=== PATIENT | female | born 1970 | race Two or more races ===

== ENCOUNTER 2018-12-21 10:37 | Emergency (ER) | payer OTHER ==
[~2018-12-21] VITALS: Ht 167.6 cm; Wt 112.5 kg
[~2018-12-21 10:37] MED LIST: ALBU2.5V38 IH; ASPI81TA31 PO; ATOR10TA PO; BUME2TAB3 PO; CARV12.52 PO; HYDR-4354 PO; HYDR50TA68 PO; Isosorbide Dinitrate PO; METF-440 PO; METO5TAB7 PO; POTA20TA10 PO; SORB30SO2 PO
[2018-12-21] MEDS ORDERED: diphenhydrAMINE 50 MG/1 ML VIAL IV ONE (10:45)
[2018-12-21] MEDS ORDERED: MORPHINE SULFATE 4 MG/1 ML DISP.SYRIN IV ONE ×2 (10:45→11:30)
[2018-12-21] MEDS ORDERED: diphenhydrAMINE 50 MG/1 ML VIAL ONE (10:50)
[2018-12-21] MEDS ORDERED: MORPHINE SULFATE 4 MG/1 ML DISP.SYRIN ONE ×3 (10:51→11:30)
[2018-12-21] MEDS ORDERED: ONDANSETRON 4 MG/2 ML VIAL ONE (10:55)
[2018-12-21] MEDS ORDERED: ONDANSETRON IV *ER 4 MG/2 ML VIAL IV ONE (11:00)
[2018-12-21] MEDS ORDERED: MORPHINE SULFATE 2 MG/1 ML DISP.SYRIN IV ONE (11:00)
--- NOTE | 2018-12-21 11:01 | NUR ---
PT IS IN ROOM #1B. DR MURPHY EVALUATED THE PT.
--- NOTE | 2018-12-21 11:44 | NUR ---
PT WAS D/C'd TO HOME AFTER ER MD RE-EVALUATION. D/C INSTRUCTIONS GIVEN TO THE PT.
[2018-12-21 11:45] VITALS: BP 153/95
== END 2018-12-21 11:46 | disposition home or self-care (01) ==
LOC: ER 10:37
DX: R60.9 Edema, unspecified (principal); I11.0 Hypertensive heart disease with heart failure; I50.9 Heart failure, unspecified; J45.909 Unspecified asthma, uncomplicated; E11.9 Type 2 diabetes mellitus without complications; F17.200 Nicotine dependence, unspecified, uncomplicated; Z88.5 Allergy status to narcotic agent; Z79.82 Long term (current) use of aspirin; Z79.891 Long term (current) use of opiate analgesic; Z79.899 Other long term (current) drug therapy
CPT/HCPCS: 96374; 96375; 96376; 99283; J1200; J2270 ×3; J2405; A4663

== ENCOUNTER 2019-04-18 17:29 | Emergency (ER) | payer OTHER ==
[~2019-04-18] VITALS: Ht 167.6 cm; Wt 108.9 kg
[2019-04-18] MEDS ORDERED: FUROSEMIDE 20 MG TABLET ONE (18:09)
[2019-04-18] MEDS ORDERED: HYDROCHLOROTHIAZIDE 25 MG TABLET ONE (18:10)
[2019-04-18] MEDS ORDERED: HYDROCHLOROTHIAZIDE 25 MG TABLET PO ONE (18:15)
[2019-04-18] MEDS ORDERED: FUROSEMIDE 20 MG TABLET PO ONE (18:15)
[2019-04-18 18:20] LABS: BASOPHILS % (AUTO) 0.6 % (0.0-2.0); EOSINOPHILS # (AUTO) 0.2 K/uL (0.0-0.7); EOSINOPHILS % (AUTO) 3.2 % (0.0-7.0); HEMATOCRIT 40.1 % (31.2-41.9); HEMOGLOBIN 12.8 g/dL (10.9-14.3); LYMPHOCYTES % (AUTO) 16.8 % (20.5-51.5); MEAN CORPUSCULAR HEMOGLOBIN 26.2 uug (24.7-32.8); MEAN CORPUSCULAR HGB CONC 32 g/dL (32.3-35.6); MEAN CORPUSCULAR VOLUME 82.4 fL (75.5-95.3); MONOCYTES # (AUTO) 0.4 K/uL (2.0-10.0); NEUTROPHILS # (AUTO) 4.2 K/uL (1.8-8.9); NEUTROPHILS % (AUTO) 72.4 % (38.5-71.5); PLATELET COUNT (AUTO) 182 K/uL (179-408); RED BLOOD CELL COUNT(AUTO) 4.87 MIL/uL (3.63-4.92); WHITE BLOOD COUNT (AUTO) 5.7 K/uL (3.8-11.8)
[2019-04-18 18:28] LABS: CREATININE 2.2 mg/dL (0.6-1.3); POTASSIUM 4.5 mmol/L (3.5-5.1)
[2019-04-18 18:34] LABS: BILIRUBIN,DIRECT 0.2 mg/dL (0.0-0.2); BILIRUBIN,TOTAL 0.4 mg/dL (0.2-1.0); TOTAL PROTEIN, SERUM 7.7 g/dL (6.4-8.2)
--- NOTE | 2019-04-18 18:49 | NUR ---
PT WAS EVALUATED BY DR CHONG. PT WAS D/C'd TO HOME. D/C INSTRUCTIONS GIVEN TO THE PT.
[2019-04-18 18:50] VITALS: BP 141/83
== END 2019-04-18 18:52 | disposition home or self-care (01) ==
LOC: ER 17:29
DX: R18.8 Other ascites (principal); R06.02 Shortness of breath; I11.0 Hypertensive heart disease with heart failure; I50.9 Heart failure, unspecified; J45.909 Unspecified asthma, uncomplicated; E11.9 Type 2 diabetes mellitus without complications; F17.200 Nicotine dependence, unspecified, uncomplicated; Z88.5 Allergy status to narcotic agent; Z79.82 Long term (current) use of aspirin; Z79.899 Other long term (current) drug therapy
CPT/HCPCS: 36415; 85025; 85730; A4663

== ENCOUNTER 2019-04-19 05:47 | Emergency (ER) | payer OTHER ==
[~2019-04-19] VITALS: Ht 167.6 cm; Wt 95.3 kg
--- NOTE | 2019-04-19 06:20 | NUR ---
Patient was here at the ER yesterday 04/18/19 and was discharge to home at 6pm 04/18/19 for pain. Return back to Er today with the same complaint. Patient reported severe back, neck and nurys. leg pain. pain level 10/10. Denies abdominal pain. Denies any N/V. Patient AAOx4. Able to speak full sentences. In no acute distress. No cardiovascular concern. No /GI concern. Bed on lock position. Fall precaution per protocol.
[2019-04-19] MEDS ORDERED: IV NORMAL SALINE 500 ML BAG IV ONE (07:00)
[2019-04-19] MEDS ORDERED: MORPHINE SULFATE 2 MG/1 ML DISP.SYRIN IV ONE (07:00)
[2019-04-19] MEDS ORDERED: ONDANSETRON 4 MG/2 ML VIAL IV ONE ×2 (07:00→07:30)
--- NOTE | 2019-04-19 07:02 | NUR ---
Report given to day shift nurse Louie.
[2019-04-19] MEDS ORDERED: MORPHINE SULFATE 4 MG/1 ML DISP.SYRIN ONE ×3 (07:15→10:35)
[2019-04-19] MEDS ORDERED: diphenhydrAMINE 50 MG/1 ML VIAL IV ONE (07:15)
[2019-04-19] MEDS ORDERED: ONDANSETRON 4 MG/2 ML VIAL ONE ×3 (07:15→10:35)
[2019-04-19] MEDS ORDERED: diphenhydrAMINE 50 MG/1 ML VIAL ONE (07:20)
[2019-04-19] MEDS ORDERED: MORPHINE SULFATE 4 MG/1 ML DISP.SYRIN IV ONE ×2 (07:30→10:30)
--- NOTE | 2019-04-19 10:04 | NUR ---
The tech talked to Dr. Wise (IR) at 8:45 am. The radiologist will called back [facility] to notify his availability. The tech notified the ER about it.
--- NOTE | 2019-04-19 10:28 | NUR ---
Dr. Wise called and let the tech know that he was caught with procedures in the [facility]. He could come in in the afternoon or evening. The tech talked to Dr. Suazo who also discussed with the patient. The patient decided to come in to ER on 04/20/2019. The tech called and notified Dr. Wise about the postponement.
[2019-04-19] MEDS ORDERED: ONDANSETRON IV *ER 4 MG/2 ML VIAL IV ONE (10:30)
--- NOTE | 2019-04-19 10:55 | NUR ---
PT WAS D/C'D TO HOME AFTER DR MURPHY RE-EVALUATION. D/C INSTRUCTIONS GIVEN TO THE PT .
[2019-04-19 10:56] VITALS: BP 142/77
== END 2019-04-19 10:57 | disposition home or self-care (01) ==
LOC: ER 05:49
DX: R18.8 Other ascites (principal); I11.0 Hypertensive heart disease with heart failure; I50.9 Heart failure, unspecified; J45.909 Unspecified asthma, uncomplicated; E11.9 Type 2 diabetes mellitus without complications; Z88.8 Allergy status to other drugs, medicaments and biological substances; Z79.899 Other long term (current) drug therapy; Z79.82 Long term (current) use of aspirin
CPT/HCPCS: 82962; 96374; 96375; 96376; 99284; J1200; J2270 ×3; J2405 ×3; A4663; J7030

== ENCOUNTER 2019-04-29 10:14 | Emergency (ER) | payer OTHER ==
[~2019-04-29] VITALS: Ht 167.6 cm; Wt 99.8 kg
[~2019-04-29 10:14] MED LIST changes: -METF-440 PO
[2019-04-29] MEDS ORDERED: FURO-151 PO (10:26)
[2019-04-29] MEDS ORDERED: NEOMY/BACITRA/POLYMYXIN B OINT UD PACKET TP ONE ×2 (10:58→11:00)
[2019-04-29] MEDS ORDERED: METOCLOPRAMIDE HCL 10 MG/2 ML VIAL ONE (10:58)
[2019-04-29] MEDS ORDERED: METOCLOPRAMIDE HCL 10 MG/2 ML VIAL IM ONE ×2 (11:00→11:30)
--- NOTE | 2019-04-29 11:01 | NUR ---
PT REFUSING REGLAN AT THIS TIME. PT REQUESTING PAIN MED. NOTIFIED
--- NOTE | 2019-04-29 11:19 | NUR ---
REQUESTING APPLE JUICE. PT TOLERATED APPLE JUICE, NO NAUSEA.
[2019-04-29] MEDS ORDERED: HYDROMORPHONE 1 MG/1 ML DISP.SYRIN IM ONE (11:30)
[2019-04-29] MEDS ORDERED: HYDROMORPHONE 2 MG/1 ML DISP.SYRIN ONE (11:31)
--- NOTE | 2019-04-29 11:42 | NUR ---
Patient discharged to home in stable conditon. Written and verbal after care instructions given. Patient verbalizes understanding of instructions.PT WALKS IN STEADY GAIT.PT NOT DRIVING. Addendum: 04/29/19 at 1145 by ARNAV CORRECTION, PT RECIEVED THE VERBAL D/C. PT DID NOT WANT TO WAITFOR WRITTEN D/C INSTRUCTION.
[2019-04-29 11:43] VITALS: BP 161/89
== END 2019-04-29 11:46 | disposition home or self-care (01) ==
LOC: ER 10:14
DX: S81.811A Laceration without foreign body, right lower leg, initial encounter (principal); I87.2 Venous insufficiency (chronic) (peripheral); I11.0 Hypertensive heart disease with heart failure; I50.9 Heart failure, unspecified; J45.909 Unspecified asthma, uncomplicated; E11.9 Type 2 diabetes mellitus without complications; F17.200 Nicotine dependence, unspecified, uncomplicated; Z76.5 Malingerer [conscious simulation]; Z88.8 Allergy status to other drugs, medicaments and biological substances; Z79.82 Long term (current) use of aspirin; Z79.899 Other long term (current) drug therapy; W22.8XXA Striking against or struck by other objects, initial encounter; Y93.89 Activity, other specified; Y92.89 Other specified places as the place of occurrence of the external cause; Y99.8 Other external cause status
CPT/HCPCS: 96372 ×2; 99283; J1170; J2765; A4663

== ENCOUNTER 2019-12-02 22:11 | Emergency (ER) | payer OTHER ==
[~2019-12-02] VITALS: Ht 167.6 cm; Wt 99.8 kg
[~2019-12-02 22:11] MED LIST changes: -ALBU2.5V38 IH; -ATOR10TA PO; -BUME2TAB3 PO; +FURO-151 PO; -Isosorbide Dinitrate PO; -METO5TAB7 PO; -POTA20TA10 PO; -SORB30SO2 PO
[2019-12-02] MEDS ORDERED: FUROSEMIDE 40 MG/4 ML VIAL IV ONE (22:30)
[2019-12-02] MEDS ORDERED: FUROSEMIDE 40 MG/4 ML VIAL ONE (22:38)
[2019-12-02 22:39] LABS: BASOPHILS % (AUTO) 0.6 % (0.0-2.0); EOSINOPHILS # (AUTO) 0.2 K/uL (0.0-0.7); EOSINOPHILS % (AUTO) 4.2 % (0.0-7.0); HEMOGLOBIN 13.7 g/dL (10.9-14.3); LYMPHOCYTES # (AUTO) 0.9 K/uL (20.0-40.0); LYMPHOCYTES % (AUTO) 15.6 % (20.5-51.5); MEAN CORPUSCULAR HEMOGLOBIN 25.5 uug (24.7-32.8); MEAN CORPUSCULAR HGB CONC 32 g/dL (32.3-35.6); MEAN CORPUSCULAR VOLUME 80.1 fL (75.5-95.3); MONOCYTES # (AUTO) 0.4 K/uL (2.0-10.0); MONOCYTES % (AUTO) 6.4 % (0.0-11.0); NEUTROPHILS # (AUTO) 4.2 K/uL (1.8-8.9); NEUTROPHILS % (AUTO) 73.2 % (38.5-71.5); PLATELET COUNT (AUTO) 181 K/uL (179-408); RED BLOOD CELL COUNT(AUTO) 5.36 MIL/uL (3.63-4.92); WHITE BLOOD COUNT (AUTO) 5.8 K/uL (3.8-11.8)
[2019-12-02 22:48] LABS: CREATININE 1.9 mg/dL (0.6-1.3); POTASSIUM 4.9 mmol/L (3.5-5.1)
[2019-12-02 22:54] LABS: BILIRUBIN,DIRECT 0.2 mg/dL (0.0-0.2); BILIRUBIN,TOTAL 0.5 mg/dL (0.2-1.0); TOTAL PROTEIN, SERUM 7.5 g/dL (6.4-8.2)
[2019-12-02] MEDS ORDERED: ONDANSETRON 4 MG/2 ML VIAL ONE (23:14)
[2019-12-02] MEDS ORDERED: CLOPIDOGREL 75 MG TABLET ONE (23:14)
[2019-12-02] MEDS ORDERED: MORPHINE SULFATE 4 MG/1 ML DISP.SYRIN ONE (23:14)
[2019-12-02] MEDS ORDERED: CLOPIDOGREL 75 MG TABLET PO ONE (23:15)
[2019-12-02] MEDS ORDERED: MORPHINE SULFATE 2 MG/1 ML DISP.SYRIN ONE (23:15)
[2019-12-02] MEDS ORDERED: ONDANSETRON 4 MG/2 ML VIAL IV ONE (23:15)
[2019-12-02] MEDS ORDERED: MORPHINE SULFATE 4 MG/1 ML DISP.SYRIN IV ONE (23:15)
[2019-12-02] MEDS ORDERED: HYDROMORPHONE 1 MG/1 ML DISP.SYRIN ONE (23:36)
--- NOTE | 2019-12-02 23:36 | NUR ---
Pt refused to have ABG done, RN FC is aware and notified.
[2019-12-02] MEDS ORDERED: HYDROMORPHONE 1 MG/1 ML DISP.SYRIN IV ONE (23:45)
[2019-12-03] MEDS: VANCOMYCIN IV 1,000 MG in IV DEXTROSE 5% 250 ML IV ONE ×2 (00:01→00:37)
[2019-12-03] MEDS ORDERED: VANCOMYCIN IV 200 ML ONE (00:02)
--- NOTE | 2019-12-03 00:37 | NUR ---
PT REFUSED IV ANTIBIOTICS PT REFUSED ABG DRAW ERMD AWARE PT STATES SHE WANTS TO LEAVE BECAUSE SHE HAS A JEHOVAH'S WITNESS TOMORROW MORNING
--- NOTE | 2019-12-03 00:46 | NUR ---
Patient does not wish to proceed with medical care recommended by Dr. HART. Patient given information related to possible complications, up to and including , which could occur as a result of leaving the hospital at this time. Patient verbalizes understanding of risks involved due to leaving against medical advice. Patient has signed AMA form.
[2019-12-03 03:23] VITALS: BP 154/94
== END 2019-12-03 00:50 | disposition left against medical advice (07) ==
LOC: ER 22:11
DX: I21.4 Non-ST elevation (NSTEMI) myocardial infarction (principal); I11.0 Hypertensive heart disease with heart failure; I50.9 Heart failure, unspecified; L03.115 Cellulitis of right lower limb; L03.116 Cellulitis of left lower limb; R60.9 Edema, unspecified; N28.9 Disorder of kidney and ureter, unspecified; J45.909 Unspecified asthma, uncomplicated; E11.9 Type 2 diabetes mellitus without complications; F17.210 Nicotine dependence, cigarettes, uncomplicated; Z76.5 Malingerer [conscious simulation]; Z88.8 Allergy status to other drugs, medicaments and biological substances; Z79.82 Long term (current) use of aspirin; Z79.899 Other long term (current) drug therapy
CPT/HCPCS: 36415; 71045; 80048; 80076; 83690; 84484; 85025; 85730; 93005; 93970; 96374; 96375; 99284; J1170; J1940; J2270 ×2; J2405; J3370; 70030-TC; A4663

== ENCOUNTER 2019-12-03 20:52 | Inpatient (IN) | payer OTHER ==
[~2019-12-03] VITALS: Ht 167.6 cm; Wt 116.2 kg
--- NOTE | 2019-12-03 21:07 | NUR ---
Dr. Spears at bedside for MSE.
--- NOTE | 2019-12-03 21:25 | NUR ---
Xray at bedside.
[2019-12-03] MEDS ORDERED: FUROSEMIDE 40 MG/4 ML VIAL ONE (21:30)
[2019-12-03] MEDS ORDERED: FUROSEMIDE 40 MG/4 ML VIAL IV ONE (21:30)
[2019-12-03 21:34] LABS: CREATININE 2.1 mg/dL (0.6-1.3)
--- NOTE | 2019-12-03 21:34 | NUR ---
Pt states unable to provide urine at this time.
[2019-12-03 21:35] LABS: BASOPHILS % (AUTO) 0.5 % (0.0-2.0); EOSINOPHILS # (AUTO) 0.2 K/uL (0.0-0.7); HEMATOCRIT 41.7 % (31.2-41.9); HEMOGLOBIN 13.1 g/dL (10.9-14.3); LYMPHOCYTES # (AUTO) 0.8 K/uL (20.0-40.0); LYMPHOCYTES % (AUTO) 16.5 % (20.5-51.5); MEAN CORPUSCULAR HEMOGLOBIN 25.8 uug (24.7-32.8); MEAN CORPUSCULAR HGB CONC 32 g/dL (32.3-35.6); MEAN CORPUSCULAR VOLUME 81.9 fL (75.5-95.3); MONOCYTES # (AUTO) 0.4 K/uL (2.0-10.0); MONOCYTES % (AUTO) 7.5 % (0.0-11.0); NEUTROPHILS # (AUTO) 3.5 K/uL (1.8-8.9); NEUTROPHILS % (AUTO) 71.5 % (38.5-71.5); PLATELET COUNT (AUTO) 165 K/uL (179-408); WHITE BLOOD COUNT (AUTO) 4.8 K/uL (3.8-11.8)
[2019-12-03] MEDS ORDERED: HYDROMORPHONE 1 MG/1 ML DISP.SYRIN ONE (21:36)
[2019-12-03] MEDS ORDERED: ONDANSETRON 4 MG/2 ML VIAL ONE (21:42)
[2019-12-03] MEDS ORDERED: HYDROMORPHONE 1 MG/1 ML DISP.SYRIN IV ONE (21:45)
[2019-12-03] MEDS ORDERED: ONDANSETRON 4 MG/2 ML VIAL IV ONE (21:45)
[2019-12-03 21:47] LABS: BILIRUBIN,DIRECT 0.2 mg/dL (0.0-0.2); BILIRUBIN,TOTAL 0.5 mg/dL (0.1-1.0)
[2019-12-03 21:48] LABS: TOTAL PROTEIN, SERUM 7.2 g/dL (6.4-8.2)
[2019-12-03 21:49] LABS: THYROID STIMULATING HORMONE 0.539 mIU/mL (0.358-3.740)
[2019-12-03] MEDS ORDERED: CLOPIDOGREL 75 MG TABLET ONE (21:57)
[2019-12-03] MEDS ORDERED: CLOPIDOGREL 75 MG TABLET PO ONE (22:00)
--- NOTE | 2019-12-03 22:09 | NUR ---
Called [facility] to page Jeanette Celestin NP.
--- NOTE | 2019-12-03 22:18 | NUR ---
Dr. Spears on panel call with Jeanette Celestin FRONT DESK SUPERVISOR. Patient accepted for admission to [facility], diagnosis: CHF exacerbation, sob.
[2019-12-03] MEDS ORDERED: NITROGLYCERIN 0.4 MG/TAB BOTTLE SL PRN (22:30)
[2019-12-03] MEDS ORDERED: MORPHINE SULFATE 4 MG/1 ML DISP.SYRIN IV ONE (22:30)
[2019-12-03] MEDS ORDERED: MORPHINE SULFATE 2 MG/1 ML DISP.SYRIN ONE (22:32)
[2019-12-03] MEDS ORDERED: MORPHINE SULFATE 4 MG/1 ML DISP.SYRIN ONE (22:32)
--- NOTE | 2019-12-03 22:43 | NUR ---
Report given to [facility].
[2019-12-03] MEDS ORDERED: hydrALAZINE HCL 20 MG/1 ML VIAL IV PRN (22:45)
[2019-12-03 23:07] VITALS: BP 170/104
[2019-12-03] MEDS: HYDROCODONE/APAP 10-325 MG TABLET PO PRN (23:36)
--- NOTE | 2019-12-03 23:45 | NUR ---
Patient arrived on floor at 2300, accompanied by ER nurse via gurney. Patient able to walk from outside of room to bed. Able to go to bathroom as well, able to void with no difficulty. AAO x 4. No visible signs of distress with O2 of 4LPM via NC. All belongings noted and accounted for. Initial physical assessment done. No noted skin breakdown aside from brownish discoloration on lower extremities, accompanied by swelling, and what appears to be lesions (with hx: of Psoriasis). Ascites noted, abdomen very distended and hard. Complaints of 4/10 pain in the back, abdomen and lower extremities (2305). Medication given in ER slowly wearing off per patient. VS taken: BP elevated: 180/100, Telemetry monitoring started. Hr in the 90s, sinus rhythm but with occasional PVCs. New admission orders noted and carried out. Hydralazine 10 mg IVP given as ordered for PRN SBP > 160. Patient also complained of worsening pain at around 2340. [place] 10/325mg given. Will re-assess vital signs in an hour. Unable to start patient on DVT pumps due to swelling on BLE. But MD with orders for chemical DVT prophylaxis. Monitoring continued.
--- NOTE | 2019-12-04 00:30 | NUR ---
BP rechecked: 140/81. Patient sleeping comfortably at this time, no signs of distress.
[2019-12-04 00:32] VITALS: BP 140/81
--- NOTE | 2019-12-04 01:50 | NUR ---
Pt woke up and complaining of 10/10 pain. [place] 10/325 mg starting to wear off per patient. report given to Velia Vuong NP. Meds reviewed with . Received new order for Dilaudid 1mg x 1, and to add Aldactone 25mg PO daily to medications. Pt notified, and agreed with plan of care.
[2019-12-04] MEDS ORDERED: HYDROMORPHONE 1 MG/1 ML DISP.SYRIN IV PRN (02:00)
[2019-12-04 05:14] VITALS: BP 121/58
[2019-12-04] MEDS ORDERED: hydrALAZINE HCL 50 MG TABLET PO SCH (06:00)
[2019-12-04] MEDS: HYDROCODONE/APAP 10-325 MG TABLET PO PRN (06:04)
[2019-12-04 06:41] LABS: BASOPHILS % (AUTO) 0.4 % (0.0-2.0); EOSINOPHILS # (AUTO) 0.2 K/uL (0.0-0.7); EOSINOPHILS % (AUTO) 4.3 % (0.0-7.0); HEMATOCRIT 38.6 % (31.2-41.9); HEMOGLOBIN 12.2 g/dL (10.9-14.3); LYMPHOCYTES % (AUTO) 19.9 % (20.5-51.5); MEAN CORPUSCULAR HEMOGLOBIN 25.5 uug (24.7-32.8); MEAN CORPUSCULAR HGB CONC 32 g/dL (32.3-35.6); MEAN CORPUSCULAR VOLUME 80.9 fL (75.5-95.3); MONOCYTES # (AUTO) 0.5 K/uL (2.0-10.0); MONOCYTES % (AUTO) 9.2 % (0.0-11.0); NEUTROPHILS # (AUTO) 3.3 K/uL (1.8-8.9); NEUTROPHILS % (AUTO) 66.2 % (38.5-71.5); PLATELET COUNT (AUTO) 178 K/uL (179-408); RED BLOOD CELL COUNT(AUTO) 4.77 MIL/uL (3.63-4.92)
[2019-12-04 06:48] LABS: CREATININE 2.1 mg/dL (0.6-1.3); POTASSIUM 5.2 mmol/L (3.5-5.1)
--- NOTE | 2019-12-04 06:58 | NUR ---
Patient slept well through the night after Dilaudid 1mg x 1, and another [place] 10 at 0600. BP also stabilized at 121/58. Due AM medications given, tolerated well. Pt verbalized desire to sleep longer and if possible not be bothered. Respected wishes. Reminded her to call for help when trying to get up, due to pain meds given. Verbalized understanding. Bed alarm turned on, bed kept low. Fall and safety precautions maintained.
[2019-12-04 07:01] LABS: THYROID STIMULATING HORMONE 0.78 mIU/mL (0.358-3.740)
[2019-12-04 07:03] LABS: BILIRUBIN,TOTAL 0.4 mg/dL (0.2-1.0); MAGNESIUM 1.6 mg/dL (1.8-2.4); PHOSPHOROUS 5.8 mg/dL (2.5-4.9); TOTAL PROTEIN, SERUM 6.6 g/dL (6.4-8.2)
[2019-12-04] MEDS ORDERED: ALBUTEROL SULFATE 2.5 MG/3 ML NEBU NEB PRN (08:00)
[2019-12-04] MEDS ORDERED: IPRATROPIUM BROMIDE 0.5 MG/2.5 ML NEBU NEB PRN (08:00)
[2019-12-04] MEDS ORDERED: CARVEDILOL 25 MG TABLET PO SCH (08:00)
--- NOTE | 2019-12-04 08:00 | NUR ---
AWAKE ALERT AND ORIENTED X3, C/O OF GENERALIZED PAIN BUT MOSTLY ON HER BACK. CONTINUE WITH PAIN MANAGEMENT. NO CHEST PAIN. CONTINUE WITH O2 NC 4L SATURATING 97%. CLOSELY MONITORED
[2019-12-04] MEDS ORDERED: ONDANSETRON 4 MG/2 ML VIAL IV PRN (08:45)
[2019-12-04] MEDS ORDERED: HYDROMORPHONE 1 MG/1 ML DISP.SYRIN IV ONE (08:45)
[2019-12-04] MEDS ORDERED: SPIRONOLACTONE 25 MG TABLET PO SCH ×2 (09:00)
[2019-12-04] MEDS ORDERED: ASPIRIN 81 MG TAB.CHEW PO SCH (09:00)
[2019-12-04] MEDS ORDERED: FUROSEMIDE 40 MG/4 ML VIAL IVP SCH (09:00)
[2019-12-04] MEDS ORDERED: NICOTINE 14 MG/24HR PATCH TD SCH (09:00)
[2019-12-04] MEDS ORDERED: LACTULOSE 20 G/30 ML LIQUID UDC PO SCH (09:00)
--- NOTE | 2019-12-04 09:00 | NUR ---
SEEN BY LISE FRIAS FOR FOLLOW-UP WITH ORDER TO FOLLOW-UP VQ SCAN ORDER, NUCLEAR MEDS NOTIFIED AND FOUND OUT THAT PATIENT REFUSED THE TEST FROM LAST NIGHT. SPOKE WITH PATIENT THE NEED FOR THE TEST AND FINALLY AGREED TO HAVE IT DONE ONLY IF SHE GETS DILAUDID. 1X DILAUDID ORDER RECEIVED FROM LISE FRIAS AND ADMINISTERED THE DOSE
[2019-12-04] MEDS ORDERED: SPIRONOLACTONE 50 MG TABLET PO SCH (09:10)
[2019-12-04] MEDS: HEPARIN SODIUM,PORCINE 5,000 UNITS/ML VIAL SQ SCH ×2 (09:21→09:35)
[2019-12-04] MEDS: MAGNESIUM SULFATE/D5W 100 ML IV SCH ×2 (09:53→10:44)
[2019-12-04] MEDS ORDERED: BUMETANIDE INJ 3 MG in IV DEXTROSE 5% 48 ML IV ONE (10:00)
--- NOTE | 2019-12-04 10:00 | NUR ---
PATIENT AGAIN REFUSED VQ SCAN WITH TECH AROUND UNTIL SHE GETS ANOTHER DILAUDID OTHERWISE SHE"LL GO AMA. LISE FRIAS NOTIFIED ADVISED NO DILAUDID.
[2019-12-04 11:10] VITALS: BP 117/52
--- NOTE | 2019-12-04 11:54 | NUR ---
PATIENT LEFT AMA WITH WAITING BY THE LOBBY. LISE FRIAS, CUSHION PADDER NOTIFIED
[2019-12-04] MEDS ORDERED: ISOSORBIDE DINITRATE 20 MG TABLET PO SCH (14:00)
== END 2019-12-04 11:55 | disposition left against medical advice (07) | DRG 194 ==
LOC: ER 20:52 → TELE3 22:46
PROVIDERS: ADMIT Registered Nurse; ATTEND Registered Nurse
DX: I13.0 Hypertensive heart and chronic kidney disease with heart failure and stage 1 through stage 4 chronic kidney disease, or unspecified chronic kidney disease (principal); N17.9 Acute kidney failure, unspecified; E11.22 Type 2 diabetes mellitus with diabetic chronic kidney disease; K76.6 Portal hypertension; E83.39 Other disorders of phosphorus metabolism; E66.01 Morbid (severe) obesity due to excess calories; I42.8 Other cardiomyopathies; E83.42 Hypomagnesemia; E87.5 Hyperkalemia; I50.23 Acute on chronic systolic (congestive) heart failure; Z91.14 Patient's other noncompliance with medication regimen; F17.210 Nicotine dependence, cigarettes, uncomplicated; N18.9 Chronic kidney disease, unspecified; K74.60 Unspecified cirrhosis of liver; G89.29 Other chronic pain; Z91.19 Patient's noncompliance with other medical treatment and regimen; Z83.3 Family history of diabetes mellitus; Z82.49 Family history of ischemic heart disease and other diseases of the circulatory system; Z79.899 Other long term (current) drug therapy; R18.8 Other ascites; Z99.81 Dependence on supplemental oxygen; Z76.5 Malingerer [conscious simulation]; J45.909 Unspecified asthma, uncomplicated; M54.5 Low back pain; M79.605 Pain in left leg; M79.604 Pain in right leg
CPT/HCPCS: 36415; 70030-TC; 71045; 83735; 84100; 84443; 85025; 85730; 93005; 93307; A4663; G0378; J0360; J1170; J1644; J1940; J2270; J2405; J3475; J3490; J7050; J7060

== ENCOUNTER 2019-12-19 21:57 | Emergency (ER) | payer OTHER ==
[~2019-12-19] VITALS: Ht 167.6 cm; Wt 99.8 kg
[2019-12-19] MEDS ORDERED: SULFAMETH/TRIMETH 800/160 MG TABLET ONE (22:26)
[2019-12-19] MEDS ORDERED: ONDANSETRON ODT 4 MG TAB.RAPDIS ONE (22:30)
[2019-12-19] MEDS ORDERED: SULFAMETH/TRIMETH 800/160 MG TABLET PO ONE (22:30)
[2019-12-19] MEDS ORDERED: diphenhydrAMINE 50 MG/1 ML VIAL ONE (22:30)
[2019-12-19] MEDS ORDERED: ONDANSETRON ODT 4 MG TAB.RAPDIS SL ONE (22:30)
[2019-12-19] MEDS ORDERED: HYDROMORPHONE 1 MG/1 ML DISP.SYRIN IM ONE (22:30)
[2019-12-19] MEDS ORDERED: diphenhydrAMINE 50 MG/1 ML VIAL IM ONE (22:30)
[2019-12-19] MEDS ORDERED: HYDROMORPHONE 2 MG/1 ML DISP.SYRIN ONE (22:30)
--- NOTE | 2019-12-19 22:52 | NUR ---
Patient discharged to home in stable conditon. Written and verbal after care instructions given. Patient verbalizes understanding of instructions. Pt walked out of ER in stable gait with fiance who will drive pt home. No acute distress noted.
[2019-12-19 22:53] VITALS: BP 162/98
== END 2019-12-19 22:54 | disposition home or self-care (01) ==
LOC: ER 22:01
DX: I83.12 Varicose veins of left lower extremity with inflammation (principal); I83.11 Varicose veins of right lower extremity with inflammation; G89.29 Other chronic pain; R60.9 Edema, unspecified; I11.0 Hypertensive heart disease with heart failure; I50.9 Heart failure, unspecified; J45.909 Unspecified asthma, uncomplicated; E11.9 Type 2 diabetes mellitus without complications; F17.200 Nicotine dependence, unspecified, uncomplicated; Z88.8 Allergy status to other drugs, medicaments and biological substances; Z79.82 Long term (current) use of aspirin; Z79.899 Other long term (current) drug therapy
CPT/HCPCS: 96372 ×2; 99283; J1170; J1200; A4663; Q0162

== ENCOUNTER 2019-12-25 21:53 | Emergency (ER) | payer OTHER ==
[~2019-12-25] VITALS: Ht 167.6 cm; Wt 99.8 kg
--- NOTE | 2019-12-25 22:41 | NUR ---
respiratory therapist at bedside for breathing tx. hob up . 02 at 4 l/min saturation 95% rr 20 to 22.
[2019-12-25] MEDS ORDERED: IPRATROPIUM BROMIDE 0.5 MG/2.5 ML NEBU NEB ONE (22:45)
[2019-12-25] MEDS ORDERED: ALBUTEROL SULFATE 2.5 MG/3 ML NEBU NEB ONE (22:45)
[2019-12-25] MEDS ORDERED: ALBUTEROL SULFATE 2.5 MG/3 ML NEBU ONE (22:48)
[2019-12-25] MEDS ORDERED: IPRATROPIUM BROMIDE 0.5 MG/2.5 ML NEBU ONE (22:49)
--- NOTE | 2019-12-25 23:05 | NUR ---
JENNA AT BEDSIDE FOR MSE.
[2019-12-25] MEDS ORDERED: HYDROCODONE/APAP 5-325MG TABLET PO ONE (23:15)
[2019-12-25] MEDS ORDERED: HYDROCODONE/APAP 5-325MG TABLET ONE (23:15)
[2019-12-25 23:42] LABS: CREATININE 2.3 mg/dL (0.6-1.3); POTASSIUM 4.6 mmol/L (3.5-5.1)
[2019-12-25 23:47] LABS: BASOPHILS % (AUTO) 0.5 % (0.0-2.0); BILIRUBIN,DIRECT 0.2 mg/dL (0.0-0.2); BILIRUBIN,TOTAL 0.4 mg/dL (0.2-1.0); EOSINOPHILS # (AUTO) 0.1 K/uL (0.0-0.7); EOSINOPHILS % (AUTO) 2.3 % (0.0-7.0); HEMATOCRIT 42.2 % (31.2-41.9); HEMOGLOBIN 13.3 g/dL (10.9-14.3); LYMPHOCYTES # (AUTO) 0.9 K/uL (20.0-40.0); LYMPHOCYTES % (AUTO) 17.1 % (20.5-51.5); MEAN CORPUSCULAR HEMOGLOBIN 25.2 uug (24.7-32.8); MEAN CORPUSCULAR HGB CONC 31 g/dL (32.3-35.6); MEAN CORPUSCULAR VOLUME 80.2 fL (75.5-95.3); MONOCYTES # (AUTO) 0.4 K/uL (2.0-10.0); MONOCYTES % (AUTO) 8.2 % (0.0-11.0); NEUTROPHILS # (AUTO) 3.7 K/uL (1.8-8.9); NEUTROPHILS % (AUTO) 71.9 % (38.5-71.5); PLATELET COUNT (AUTO) 196 K/uL (179-408); RED BLOOD CELL COUNT(AUTO) 5.27 MIL/uL (3.63-4.92); TOTAL PROTEIN, SERUM 7.2 g/dL (6.4-8.2); WHITE BLOOD COUNT (AUTO) 5.2 K/uL (3.8-11.8)
[2019-12-26] MEDS ORDERED: GABAPENTIN 100 MG CAPSULE PO ONE
[2019-12-26] MEDS ORDERED: GABAPENTIN 100 MG CAPSULE ONE (00:15)
--- NOTE | 2019-12-26 00:23 | NUR ---
Patient discharged to home in stable conditon. Written and verbal after care instructions given. Patient verbalizes understanding of instructions.V/S WNL .NO SOB ON ROOM AIR RR 20 SATURATION 96 TO 98%. D/C HOME VIA WHEELCHAIR WITH INSTRUCTION /PRESCRIPTION AND ALL BELONGINGS .
[2019-12-26 00:28] VITALS: BP 145/78
== END 2019-12-26 00:29 | disposition home or self-care (01) ==
LOC: ER 21:54
DX: I83.12 Varicose veins of left lower extremity with inflammation (principal); I83.11 Varicose veins of right lower extremity with inflammation; J44.9 Chronic obstructive pulmonary disease, unspecified; G89.29 Other chronic pain; M79.661 Pain in right lower leg; M79.662 Pain in left lower leg; I11.0 Hypertensive heart disease with heart failure; I50.9 Heart failure, unspecified; E11.9 Type 2 diabetes mellitus without complications; F17.200 Nicotine dependence, unspecified, uncomplicated; Z79.899 Other long term (current) drug therapy; Z79.82 Long term (current) use of aspirin; Z88.8 Allergy status to other drugs, medicaments and biological substances
CPT/HCPCS: 36415; 70030-TC; 71045; 85025; 93005; A4663; J3590

== ENCOUNTER 2019-12-26 06:45 | Emergency (ER) | payer OTHER ==
[~2019-12-26] VITALS: Ht 167.6 cm; Wt 99.8 kg
[2019-12-26] MEDS ORDERED: HYDROMORPHONE 1 MG/1 ML DISP.SYRIN IV ONE (07:00)
[2019-12-26] MEDS ORDERED: ONDANSETRON 4 MG/2 ML VIAL IV ONE (07:00)
[2019-12-26] MEDS ORDERED: HYDROMORPHONE 1 MG/1 ML DISP.SYRIN ONE (07:15)
[2019-12-26] MEDS ORDERED: diphenhydrAMINE 50 MG/1 ML VIAL IV ONE (07:15)
[2019-12-26] MEDS ORDERED: diphenhydrAMINE 50 MG/1 ML VIAL ONE (07:15)
[2019-12-26] MEDS ORDERED: ONDANSETRON 4 MG/2 ML VIAL ONE (07:15)
[2019-12-26] MEDS ORDERED: MORPHINE SULFATE 2 MG/1 ML DISP.SYRIN ONE (07:28)
[2019-12-26] MEDS ORDERED: MORPHINE SULFATE 2 MG/1 ML DISP.SYRIN IV ONE (07:30)
--- NOTE | 2019-12-26 07:32 | NUR ---
discontinued patient IV and discharge paper work given.
--- NOTE | 2019-12-26 07:33 | NUR ---
patient will not be driving home.
== END 2019-12-26 07:36 | disposition home or self-care (01) ==
LOC: ER 06:47
DX: G89.29 Other chronic pain (principal); M79.606 Pain in leg, unspecified; I50.9 Heart failure, unspecified; E11.9 Type 2 diabetes mellitus without complications; K76.6 Portal hypertension; Z79.899 Other long term (current) drug therapy; Z79.82 Long term (current) use of aspirin; Z88.6 Allergy status to analgesic agent
CPT/HCPCS: 96374; 96375; 99283; J1170; J1200; J2270; J2405; A4663

== ENCOUNTER 2020-04-07 18:39 | Inpatient (IN) | payer OTHER ==
[~2020-04-07] VITALS: Ht 167.6 cm; Wt 118.4 kg
[2020-04-07 11:10] VITALS: BP 145/92
--- NOTE | 2020-04-07 18:58 | NUR ---
Dr [email or web address], MSE in progress, pending orders
[2020-04-07] MEDS ORDERED: METF-440 PO (19:04)
[2020-04-07] MEDS ORDERED: METO25TA6 PO (19:04)
[2020-04-07] MEDS ORDERED: VANCOMYCIN 1G/D5W 200 ML PIGGYBACK IV ONE (19:15)
[2020-04-07] MEDS ORDERED: ONDANSETRON 4 MG/2 ML VIAL IV ONE (19:15)
[2020-04-07] MEDS ORDERED: CEFTRIAXONE 1 G in IV DEXTROSE 5% 50 ML IV ONE (19:15)
[2020-04-07] MEDS ORDERED: MORPHINE SULFATE 2 MG/1 ML DISP.SYRIN IV ONE (19:15)
[2020-04-07] MEDS ORDERED: FUROSEMIDE 20 MG/2 ML VIAL IVP ONE (19:15)
[2020-04-07] MEDS ORDERED: MORPHINE SULFATE 4 MG/1 ML DISP.SYRIN ONE ×2 (19:31→22:22)
[2020-04-07] MEDS ORDERED: ONDANSETRON 4 MG/2 ML VIAL ONE (19:31)
[2020-04-07] MEDS ORDERED: VANCOMYCIN IV 200 ML ONE (19:31)
[2020-04-07] MEDS ORDERED: FUROSEMIDE 40 MG/4 ML VIAL ONE (19:31)
[2020-04-07] MEDS ORDERED: CEFTRIAXONE /D5W 50ML IVPB **ER PYXIS IV ONE (19:31)
[2020-04-07 19:56] LABS: CREATININE 2.3 mg/dL (0.6-1.3); POTASSIUM 4.9 mmol/L (3.5-5.1)
[2020-04-07 19:58] LABS: BASOPHILS # (AUTO) 0.1 K/uL (0.0-8.0); BASOPHILS % (AUTO) 0.8 % (0.0-2.0); EOSINOPHILS # (AUTO) 0.2 K/uL (0.0-0.7); EOSINOPHILS % (AUTO) 2.3 % (0.0-7.0); HEMATOCRIT 38.6 % (31.2-41.9); HEMOGLOBIN 12.4 g/dL (10.9-14.3); LYMPHOCYTES % (AUTO) 14.7 % (20.5-51.5); MEAN CORPUSCULAR HEMOGLOBIN 24.8 uug (24.7-32.8); MEAN CORPUSCULAR HGB CONC 32 g/dL (32.3-35.6); MEAN CORPUSCULAR VOLUME 77.4 fL (75.5-95.3); MONOCYTES # (AUTO) 0.4 K/uL (2.0-10.0); MONOCYTES % (AUTO) 6.3 % (0.0-11.0); NEUTROPHILS % (AUTO) 75.9 % (38.5-71.5); PLATELET COUNT (AUTO) 269 K/uL (179-408); RED BLOOD CELL COUNT(AUTO) 4.99 MIL/uL (3.63-4.92); WHITE BLOOD COUNT (AUTO) 6.6 K/uL (3.8-11.8)
[2020-04-07 20:08] LABS: BILIRUBIN,DIRECT 0.3 mg/dL (0.0-0.2); BILIRUBIN,TOTAL 0.4 mg/dL (0.2-1.0); TOTAL PROTEIN, SERUM 8.5 g/dL (6.4-8.2)
--- NOTE | 2020-04-07 22:09 | NUR ---
Called [facility] for panel placement
--- NOTE | 2020-04-07 22:11 | NUR ---
Dr. Harrington speaking with Anthony Mahmood NP
--- NOTE | 2020-04-07 22:15 | NUR ---
Pt. admitted to TELE , under care of Dr. Anthony Mahmood Belongs List completed
[2020-04-07] MEDS ORDERED: MORPHINE SULFATE 4 MG/1 ML DISP.SYRIN IV ONE (22:30)
[2020-04-07] MEDS ORDERED: Z GUARD REMEDY PASTE 57 GM TUBE TOP PRN (22:45)
[2020-04-07] MEDS ORDERED: DEXTROSE 50% 50 ML DISP.SYRIN IV PRN (22:45)
[2020-04-07] MEDS ORDERED: INSULIN REGULAR, HUMAN 300 UNIT/3 ML VIAL SQ PRN (22:45)
--- NOTE | 2020-04-07 22:45 | NUR ---
Admitted a 49 years old female with Diagnosis of BLE Cellulitis. Patient AAOx4. In no acute distress. On O2 at 2LPM via NC in place. O2 sat at 99%. Patient with chronic pain on BLE. Morphine 4mg IV was given by ER nurse prior to arrival at the unit. IV site on right AC intact and patent. Sinus tachy on tele at 108/min. BLE with multiple open wounds. Cleanse wound with saline, pat dry, cover with Mepilex and wrap with kerlix. Keep off pressure area and elevated with pillows. Routine admission care done. Plan of care initiated. Safety measure initiated and call pulido within reached. Continue to monitor.
[2020-04-08] VITALS (7 sets, daily range): BP systolic 120–143; BP diastolic 72–90
--- NOTE | 2020-04-08 00:30 | NUR ---
MEDICATED W/ MORPHINE 2M IVP FOR LOWER LEGS PAIN. C-SCOPE SR. BP STABLE.
[2020-04-08] MEDS: MORPHINE SULFATE 2 MG/1 ML DISP.SYRIN IV PRN ×6 (02:04→23:29)
--- NOTE | 2020-04-08 06:10 | NUR ---
AAOx4. In no acute distress. On O2 at 2LPM via NC. O2 sat at 98%. IV site on right AC intact and patent. Sinus tachy on tele at 115/min. BLE keep off pressure area and elevated with pillows. Needs attended to and met. Safety measure maintained and call pulido within reached.
[2020-04-08] MEDS: BLOOD SUGAR DIAGNOSTIC 1 EACH STRIP VI SCH ×4 (06:34→21:18)
--- NOTE | 2020-04-08 07:30 | NUR ---
RECIEVED PT LYING IN BED VERY SOUND ASLEEP. HOB UP AT 35DEGREES. PT IS HEAVILY OBESSED, BOTH LEGS ARE EDEMATOUS AND SWOLLLEN WITH DRESSING AND KERLEX AROUND. BOTH LEGS ARE ELEVATED ON PILLOWS. NO APPARENT RESPIRATORY DISTRESS NOTED.
[2020-04-08 08:19] LABS: BASOPHILS % (AUTO) 0.7 % (0.0-2.0); EOSINOPHILS # (AUTO) 0.1 K/uL (0.0-0.7); EOSINOPHILS % (AUTO) 2.3 % (0.0-7.0); HEMATOCRIT 35.7 % (31.2-41.9); LYMPHOCYTES # (AUTO) 0.7 K/uL (20.0-40.0); LYMPHOCYTES % (AUTO) 11.6 % (20.5-51.5); MEAN CORPUSCULAR HEMOGLOBIN 24.4 uug (24.7-32.8); MEAN CORPUSCULAR HGB CONC 31 g/dL (32.3-35.6); MONOCYTES # (AUTO) 0.6 K/uL (2.0-10.0); MONOCYTES % (AUTO) 9.9 % (0.0-11.0); NEUTROPHILS # (AUTO) 4.8 K/uL (1.8-8.9); NEUTROPHILS % (AUTO) 75.5 % (38.5-71.5); PLATELET COUNT (AUTO) 247 K/uL (179-408); RED BLOOD CELL COUNT(AUTO) 4.52 MIL/uL (3.63-4.92); WHITE BLOOD COUNT (AUTO) 6.4 K/uL (3.8-11.8)
[2020-04-08 08:21] LABS: BILIRUBIN,TOTAL 0.5 mg/dL (0.2-1.0); CREATININE 2.1 mg/dL (0.6-1.3); MAGNESIUM 1.7 mg/dL (1.8-2.4); PHOSPHOROUS 5.4 mg/dL (2.5-4.9); POTASSIUM 5.2 mmol/L (3.5-5.1); TOTAL PROTEIN, SERUM 7.8 g/dL (6.4-8.2)
[2020-04-08 08:25] LABS: THYROID STIMULATING HORMONE 0.483 mIU/mL (0.358-3.740)
[2020-04-08] MEDS ORDERED: NICOTINE 21 MG/24HR PATCH TD SCH (09:00)
[2020-04-08] MEDS: FUROSEMIDE 40 MG/4 ML VIAL IV SCH ×2 (09:11→21:07)
[2020-04-08] MEDS: METOPROLOL TARTRATE 25 MG TABLET PO SCH ×2 (09:11→16:48)
[2020-04-08] MEDS: HEPARIN SODIUM,PORCINE 5,000 UNITS/ML VIAL SQ SCH ×3 (09:14→21:15)
[2020-04-08] MEDS: ONDANSETRON 4 MG/2 ML VIAL IV PRN ×2 (10:19→18:28)
--- NOTE | 2020-04-08 10:20 | NUR ---
PT REQUESTED FOR PAIN MEDICATION FOR HE LEGS LEVEL 10. MEDICATED WITH MORPHINE 2MG SLOW IVP ORDERED.
--- NOTE | 2020-04-08 10:33 | NUR ---
Clinical Pharmacy Note: Vancomycin Dosing per Pharmacy Subjective: Vancomycin IV to start on this 49yo female patient for empiric (cellulitis). Objective: BUN 47/Scr 2.1 WBC 6.4 Temperature 98 Vanco random level with am labs on 04/08: 8.8 (post vanco 1gm IV x1 on 04/07 at 2030) ht 167.6 cm wt 120.6 kg Assessment/Plan: Due to elevated srcr, will dose by random level for now. Since vanco random level this am is 8.8 mcg/ml, will give vancomycin 1500mg IVPB x1 today at noon. Will draw a vancomycin random level tomorrow in am for further dosing. Will follow daily.
--- NOTE | 2020-04-08 11:30 | NUR ---
PT UP ON THE CHAIR AND TOLERATED WELL.
[2020-04-08] MEDS ORDERED: VANCOMYCIN IV 1,500 MG in IV DEXTROSE 5% 500 ML IV ONE (12:00)
[2020-04-08] MEDS ORDERED: MAGNESIUM OXIDE 400 MG TABLET PO ONE (12:30)
[2020-04-08] MEDS: NICOTINE 21 MG/24HR PATCH TD SCH (13:15)
[2020-04-08] MEDS: diphenhydrAMINE 50 MG/1 ML VIAL IV PRN (13:16)
--- NOTE | 2020-04-08 17:30 | NUR ---
VENOUS DOPPLER FO BOTH LOWER EXTREMETIES DONE AT THE BEDSIDE ORDERED. FOLLOWED UP ON THE 2D-ECHO, RESULT IN THE CHART FROM 2 MONTHS AGO.
--- NOTE | 2020-04-08 18:35 | NUR ---
Inserted a foleycatheter fr 16 in, pt just finally agreed to have a foleycatheter. Medicated with Morphine 2mg slow IVP for pain on her legs level10, and pt requested to have Zofran 4mg slow IVP for her nausea. Given as ordered.
[2020-04-08] MEDS ORDERED: CEFTRIAXONE 2 G in IV DEXTROSE 5% 100 ML IV SCH (19:00)
--- NOTE | 2020-04-08 20:00 | NUR ---
RECEIVED PT. AWAKE, ALERT & ORIENTED X4. ON O2 @ 2LNC W/ O2 SAT OF 98%. DRSG ON LOWER INTACT & DRY. HEP LOCK INTACT ON RAC. & PATENT. NOT IN ANY DISTRESS.
--- NOTE | 2020-04-09 | NUR ---
PT WOODRUFF IS LEAKING AROUND THE URETHRA. OBTAINED ONLY 50CC URINE OUTPUT. CHECKED WOODRUFF NOT IN PLACE..BLADDER SCAN DONE, 420CC NOTED. INSERTED WOODRUFF # [id number], PT REFUSED.
[2020-04-09 00:05] VITALS: BP 130/64
[2020-04-09] MEDS: ZOLPIDEM 5 MG TABLET PO PRN ×2 (02:10→02:12)
[2020-04-09 04:00] VITALS: BP 140/64
[2020-04-09] MEDS: MORPHINE SULFATE 2 MG/1 ML DISP.SYRIN IV PRN ×3 (04:24→17:25)
--- NOTE | 2020-04-09 04:25 | NUR ---
MEDICATED W/ MORPHINE 2 MG IVP FOR PAIN SCALE 10/10.
[2020-04-09 05:48] LABS: BASOPHILS # (AUTO) 0.1 K/uL (0.0-8.0); EOSINOPHILS # (AUTO) 0.2 K/uL (0.0-0.7); HEMATOCRIT 37.7 % (31.2-41.9); HEMOGLOBIN 11.7 g/dL (10.9-14.3); LYMPHOCYTES # (AUTO) 0.9 K/uL (20.0-40.0); LYMPHOCYTES % (AUTO) 12.1 % (20.5-51.5); MEAN CORPUSCULAR HEMOGLOBIN 24.5 uug (24.7-32.8); MEAN CORPUSCULAR HGB CONC 31 g/dL (32.3-35.6); MEAN CORPUSCULAR VOLUME 78.8 fL (75.5-95.3); MONOCYTES # (AUTO) 0.8 K/uL (2.0-10.0); NEUTROPHILS # (AUTO) 5.7 K/uL (1.8-8.9); NEUTROPHILS % (AUTO) 74.9 % (38.5-71.5); PLATELET COUNT (AUTO) 267 K/uL (179-408); RED BLOOD CELL COUNT(AUTO) 4.79 MIL/uL (3.63-4.92); WHITE BLOOD COUNT (AUTO) 7.7 K/uL (3.8-11.8)
[2020-04-09 06:04] LABS: CREATININE 2.5 mg/dL (0.6-1.3); MAGNESIUM 1.7 mg/dL (1.8-2.4); PHOSPHOROUS 5.9 mg/dL (2.5-4.9); POTASSIUM 5.6 mmol/L (3.5-5.1); VANCOMYCIN,RANDOM 18.9 ug/mL (18.0-26.0)
[2020-04-09] MEDS: BLOOD SUGAR DIAGNOSTIC 1 EACH STRIP VI SCH ×3 (06:42→16:30)
[2020-04-09 08:00] VITALS: BP 147/80
[2020-04-09] MEDS ORDERED: VANCOMYCIN IV 1,500 MG in IV DEXTROSE 5% 500 ML IV ONE (09:00)
[2020-04-09] MEDS ORDERED: METOLAZONE 2.5 MG TABLET PO ONE (09:15)
[2020-04-09] MEDS: FUROSEMIDE 40 MG/4 ML VIAL IV SCH (09:36)
[2020-04-09] MEDS: NICOTINE 21 MG/24HR PATCH TD SCH (09:36)
[2020-04-09] MEDS: METOPROLOL TARTRATE 25 MG TABLET PO SCH ×2 (09:37→17:53)
--- NOTE | 2020-04-09 10:41 | NUR ---
Clinical Pharmacy Note: Vancomycin Dosing per Pharmacy Subjective: Vancomycin IV to continue on this 49yo female patient for empiric (cellulitis). Objective: BUN 49/Scr 2.5 WBC 7.7 Temperature 98 Vanco random level with am labs on 04/08: 8.8 (post vanco 1gm IV x1 on 04/07 at 2030) Vanco random level with am labs today: 18.9 ht 167.6 cm wt 120.6 kg Assessment/Plan: Due to elevated srcr, will dose by random level for now. Per today's random, gave another 1500mg vanco dose at 0900. Next random due tomorrow with am labs. Will check and re-dose as appropriate. Will follow
[2020-04-09] MEDS: ONDANSETRON 4 MG/2 ML VIAL IV PRN (10:59)
[2020-04-09] MEDS: diphenhydrAMINE 50 MG/1 ML VIAL IV PRN (11:44)
[2020-04-09 12:00] VITALS: BP 123/42
[2020-04-09] MEDS ORDERED: MAGNESIUM SULFATE/D5W 100 ML IV SCH (13:00)
[2020-04-09] MEDS ORDERED: FUROSEMIDE 40 MG/4 ML VIAL IV SCH (14:00)
[2020-04-09 16:00] VITALS: BP 130/81
[2020-04-09 17:53] VITALS: BP 125/60
--- NOTE | 2020-04-09 18:30 | NUR ---
PT SIGNED OUT AMA AND NOTIFIED JOSE ANTONIO FUENTES.
== END 2020-04-09 18:45 | disposition left against medical advice (07) | DRG 194 ==
LOC: ER 18:42 → TELE3 22:34
PROVIDERS: ADMIT Hospitalist; ATTEND Hospitalist
DX: I13.0 Hypertensive heart and chronic kidney disease with heart failure and stage 1 through stage 4 chronic kidney disease, or unspecified chronic kidney disease (principal); N17.0 Acute kidney failure with tubular necrosis; E66.01 Morbid (severe) obesity due to excess calories; E44.1 Mild protein-calorie malnutrition; E11.22 Type 2 diabetes mellitus with diabetic chronic kidney disease; K76.6 Portal hypertension; L03.115 Cellulitis of right lower limb; E83.39 Other disorders of phosphorus metabolism; E83.42 Hypomagnesemia; L03.116 Cellulitis of left lower limb; I50.23 Acute on chronic systolic (congestive) heart failure; K74.60 Unspecified cirrhosis of liver; J44.9 Chronic obstructive pulmonary disease, unspecified; E87.5 Hyperkalemia; F17.210 Nicotine dependence, cigarettes, uncomplicated; G89.29 Other chronic pain; N18.9 Chronic kidney disease, unspecified; I87.2 Venous insufficiency (chronic) (peripheral); E66.9 Obesity, unspecified; Z68.41 Body mass index [BMI] 40.0-44.9, adult; Z99.81 Dependence on supplemental oxygen; I87.313 Chronic venous hypertension (idiopathic) with ulcer of bilateral lower extremity; Z91.19 Patient's noncompliance with other medical treatment and regimen; L97.829 Non-pressure chronic ulcer of other part of left lower leg with unspecified severity; L97.819 Non-pressure chronic ulcer of other part of right lower leg with unspecified severity; I25.5 Ischemic cardiomyopathy
CPT/HCPCS: 36415; 70030-TC; 71045; 83605; 83735; 84100; 84443; 85025; 85730; 87040; 93005; A4217; A4663; G0378; J0696; J1200; J1644; J1815; J1940; J2270; J2405; J3370; J3475; J7050; J7060

== ENCOUNTER 2021-07-28 21:07 | Emergency (ER) | payer OTHER ==
[~2021-07-28] VITALS: Ht 167.6 cm; Wt 68.0 kg
[~2021-07-28 21:07] MED LIST changes: -ASPI81TA31 PO; -CARV12.52 PO; -HYDR-4354 PO; -HYDR50TA68 PO; +METF-440 PO; +METO25TA6 PO
--- NOTE | 2021-07-28 21:22 | NUR ---
Dr. Harrington at bedside for MSE.
[2021-07-28] MEDS ORDERED: HYDR4TAB57 PO (21:30)
[2021-07-28] MEDS ORDERED: ONDANSETRON ODT 4 MG TAB.RAPDIS SL ONE (21:30)
[2021-07-28] MEDS ORDERED: HYDROMORPHONE HCL 2 MG TABLET PO ONE (21:30)
[2021-07-28] MEDS ORDERED: ONDA4TAB5 PO (21:30)
[2021-07-28] MEDS ORDERED: HYDROMORPHONE HCL 2 MG TABLET ONE (21:33)
[2021-07-28] MEDS ORDERED: ONDANSETRON ODT 4 MG TAB.RAPDIS ONE (21:34)
--- NOTE | 2021-07-28 21:36 | NUR ---
Patient discharged to home in stable condition. Written and verbal after care instructions given. Patient verbalizes understanding of instructions. Stressed follow up or return to ER for worsening s/s. Patient out of ER with steady gait, no acute signs of distress, VSS, all belongings taken, instructed not to drive, to be driven home by via private vehicle.
[2021-07-28 21:37] VITALS: BP 131/94
== END 2021-07-28 21:38 | disposition home or self-care (01) ==
LOC: ER 21:07
DX: G89.29 Other chronic pain (principal); M79.605 Pain in left leg; M79.604 Pain in right leg; Z88.6 Allergy status to analgesic agent; Z76.5 Malingerer [conscious simulation]; F17.210 Nicotine dependence, cigarettes, uncomplicated; E11.22 Type 2 diabetes mellitus with diabetic chronic kidney disease; I13.0 Hypertensive heart and chronic kidney disease with heart failure and stage 1 through stage 4 chronic kidney disease, or unspecified chronic kidney disease; N18.9 Chronic kidney disease, unspecified; I50.9 Heart failure, unspecified; Z79.84 Long term (current) use of oral hypoglycemic drugs; Z82.49 Family history of ischemic heart disease and other diseases of the circulatory system; J44.9 Chronic obstructive pulmonary disease, unspecified
CPT/HCPCS: A4663; Q0162

== ENCOUNTER 2021-09-10 19:59 | Emergency (ER) | payer OTHER ==
[~2021-09-10] VITALS: Ht 167.6 cm; Wt 68.0 kg
[~2021-09-10 19:59] MED LIST changes: +HYDR4TAB57 PO; +ONDA4TAB5 PO
--- NOTE | 2021-09-10 20:44 | NUR ---
PT AMBULATED TO ER C/O LOWER BACK PAIN. A/O X4, NO SOB OR LABORED BREATHINGM, AFEBRILE. DENIES N/V/D.
--- NOTE | 2021-09-10 20:48 | NUR ---
Woody SU AT BEDSIDE, MSE IN PROGRESS.
[2021-09-10] MEDS ORDERED: HYDR-3980 PO (20:51)
[2021-09-10] MEDS ORDERED: HYDROMORPHONE HCL 2 MG TABLET PO ONE (21:00)
[2021-09-10] MEDS ORDERED: HYDROMORPHONE HCL 2 MG TABLET ONE (21:01)
--- NOTE | 2021-09-10 21:03 | NUR ---
Patient discharged to home in stable condition. Denies any pain/discomfort upon discharge. Written and verbal after care instructions given. Patient verbalizes understanding of instructions. Stressed follow up or return to ER for worsening s/s. Steady gait.
[2021-09-10 21:04] VITALS: BP 128/87
== END 2021-09-10 21:05 | disposition home or self-care (01) ==
LOC: ER 20:00
DX: G89.4 Chronic pain syndrome (principal); R60.0 Localized edema; F17.210 Nicotine dependence, cigarettes, uncomplicated; E11.22 Type 2 diabetes mellitus with diabetic chronic kidney disease; I13.0 Hypertensive heart and chronic kidney disease with heart failure and stage 1 through stage 4 chronic kidney disease, or unspecified chronic kidney disease; N18.9 Chronic kidney disease, unspecified; I50.9 Heart failure, unspecified; Z79.84 Long term (current) use of oral hypoglycemic drugs; J44.9 Chronic obstructive pulmonary disease, unspecified; Z99.81 Dependence on supplemental oxygen; Z88.6 Allergy status to analgesic agent; M79.605 Pain in left leg; M79.604 Pain in right leg; Z76.5 Malingerer [conscious simulation]; M54.9 Dorsalgia, unspecified; K76.6 Portal hypertension; K74.60 Unspecified cirrhosis of liver; I25.5 Ischemic cardiomyopathy; Z82.49 Family history of ischemic heart disease and other diseases of the circulatory system; Z79.899 Other long term (current) drug therapy
CPT/HCPCS: A4663

== ENCOUNTER 2022-01-02 20:27 | Emergency (ER) | payer OTHER ==
[~2022-01-02] VITALS: Ht 167.6 cm; Wt 81.6 kg
[~2022-01-02 20:27] MED LIST changes: +HYDR-3980 PO
--- NOTE | 2022-01-02 21:15 | NUR ---
Dr Harrington into eval patient.
[2022-01-02] MEDS ORDERED: HYDROMORPHONE HCL 2 MG TABLET PO ONE (21:30)
[2022-01-02] MEDS ORDERED: diphenhydrAMINE 50 MG/1 ML VIAL IM ONE (21:30)
[2022-01-02] MEDS ORDERED: OXYC-133 PO (21:31)
[2022-01-02] MEDS ORDERED: diphenhydrAMINE 50 MG/1 ML VIAL ONE (21:36)
[2022-01-02] MEDS ORDERED: HYDROMORPHONE HCL 2 MG TABLET ONE (21:36)
--- NOTE | 2022-01-02 21:39 | NUR ---
Patient discharged to home in stable condition with family taking patient home. Written and verbal after care instructions given. Patient verbalizes understanding of instructions. Stressed follow up or return to ER for worsening s/s.
[2022-01-02 21:40] VITALS: BP 120/75
== END 2022-01-02 21:40 | disposition home or self-care (01) ==
LOC: ER 20:28
DX: G89.4 Chronic pain syndrome (principal); J44.9 Chronic obstructive pulmonary disease, unspecified; M54.9 Dorsalgia, unspecified; Z99.81 Dependence on supplemental oxygen; F17.210 Nicotine dependence, cigarettes, uncomplicated; I50.9 Heart failure, unspecified; Z79.84 Long term (current) use of oral hypoglycemic drugs; Z79.899 Other long term (current) drug therapy; Z76.5 Malingerer [conscious simulation]; Z82.49 Family history of ischemic heart disease and other diseases of the circulatory system; Z88.6 Allergy status to analgesic agent; E11.22 Type 2 diabetes mellitus with diabetic chronic kidney disease; I13.0 Hypertensive heart and chronic kidney disease with heart failure and stage 1 through stage 4 chronic kidney disease, or unspecified chronic kidney disease; N18.9 Chronic kidney disease, unspecified
CPT/HCPCS: 96372; 99283; 99406; J1200; A4663